=== PATIENT | female | born 1945 | race Caucasian/White ===

== ENCOUNTER 2023-11-10 10:44 | Emergency (ER) | payer OTHER, SELFPAY ==
[2023-11-10 10:52] VITALS: PULSE 145; RESP 9; O2SAT 98
--- NOTE | 2023-11-10 10:57 | EKG_ITS ---
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
--- NOTE | 2023-11-10 10:57 | DI.RAD.S_ITS ---
PROCEDURE: XR CHEST 1V INDICATIONS: chest pain TECHNIQUE: One view of the chest was acquired. COMPARISON: None. FINDINGS: Surgical changes and devices: None. Lungs and pleura: Lungs are clear. No pleural effusions or pneumothorax. Mediastinum: Mediastinal contours appear normal. Heart size is normal. Bones and chest wall: No suspicious bony lesions. Overlying soft tissues appear unremarkable. IMPRESSION: No acute pulmonary process. Dictated by: Genevieve German M.D. on 11/10/2023 at 12:26 Approved by: Genevieve German M.D. on 11/10/2023 at 12:30
[2023-11-10 11:00] VITALS: BP 112/64; BP 148/99; PULSE 143; RESP 16; O2SAT 97
[2023-11-10] MEDS: dilTIAZem 25 MG/5 ML SDV 10 MG IV (11:00)
[2023-11-10 11:03] VITALS: BP 112/64; PULSE 151; RESP 14; TEMP 36.4; O2SAT 98; BMI 31.4
[2023-11-10 11:03] LABS: Add Manual Diff / Slide Review NO; Basophils Absolute Auto 100 /uL (0-100); Basophils Percent Auto 1.1 % (0-2); Eosinophils Absolute Auto 100 /uL (0-450); Eosinophils Percent Auto 1.6 % (2-4); Hematocrit 44.4 % (36-46); Hemoglobin 15.1 g/dL (12.0-16.0); Lymphocytes Absolute Auto 2600 /uL (1100-4500); Lymphocytes Percent Auto 29.5 % (25-40); Mean Corpuscular HGB Conc 33.9 % (30-36); Mean Corpuscular Volume 85.3 fL (80-100); Monocytes Absolute Auto 600 /uL (0-900); Monocytes Percent Auto 7.1 % (3-14); Neutrophils Absolute Auto 5400 /uL (1500-7000); Neutrophils Percent Auto 60.7 % (50-75); Platelet Count 318 X10^3/uL (150-400); Red Cell Distribution Width 15.1 % (11.6-14.8)
--- NOTE | 2023-11-10 11:11 | PC.NURSE ---
Addendum entered by Kallie Wasserman R.N. 11/10/23 11:19: 1119 Pt converted to NSR. HR 74 after 10mg of IV diltiazem. Pt states that she feels better, but still mildly SOB. Original Note: Pt came to ED from [facility] office due to SVT. Pt at routine cardiology appointment and started to feel dizzy and SOB. EKG at [facility] abnormal and Dr Rothman spoke with Dr Palumbo on phone regarding pt. Pt arrived to the dept and stated that she felt very SOB and dizzy. Taken immediately to room, where EKG done, 18G IV placed, placed on bedside conference director and Dr Palumbo called to bedside. Pt HR 151. Vasovagal maneuver performed on pt with DR Palumbo and unsuccessful. Dr Palumbo placed order for 10mg Diltiazem IV. Pt HR 124.
[2023-11-10 11:24] LABS: Alanine Aminotransferase 39 IU/L (<35); Albumin 4.5 g/dL (3.5-5.0); Albumin Globulin Ratio 1.4 (1.0-2.8); Alkaline Phosphatase 167 U/L (38-126); Aspartate Aminotransferase 41 IU/L (14-36); Bilirubin Total 0.6 mg/dL (0.2-1.3); Blood Urea Nitrogen 21 mg/dL (7-17); Calcium 9.5 mg/dL (8.4-10.2); Carbon Dioxide 23 mmol/L (22-32); Chloride 106 mmol/L (98-107); Creatine Kinase 58 U/L (30-135); Estimated Glomerular Filt Rate 57 mL/min (>60); Globulin 3.2 g/dL (1.7-4.1); Glucose 109 mg/dL (80-110); HEMOLYSIS < 15 (0-50); Lipase 161 U/L (23-300); Potassium 4.3 mmol/L (3.4-5.1); Sodium 136 mmol/L (137-145); Total Protein 7.7 g/dL (6.3-8.2)
[2023-11-10 11:30] VITALS: BP 154/72; PULSE 67; RESP 28; O2SAT 96
[2023-11-10 11:36] LABS: Troponin I < 0.012 ng/mL (0.01-0.034)
--- NOTE | 2023-11-10 11:38 | EKG_ITS ---
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
--- NOTE | 2023-11-10 11:40 | ED.ARRPALP ---
HPI - Arrhythmia/Palpitations General Chief Complaint: Arrhythmia/Palpitations Stated Complaint: sent from Dr Willard Time Seen by Provider: 11/10/23 10:54 Source: patient Mode of arrival: Ambulatory History of Present Illness HPI narrative: Patient is a evelia 78-year-old female history of an arrhythmia, fatty liver presenting today from cardiology office in [place]. She reports that she was having some chest palpitations shortness of breath back in June she finally got a cardiology appointment she was in SVT today. She says she was feeling in her normal state of health yesterday however this morning she started feeling a little shortness of breath and some fluttering in her chest. He had a heart rate of [address] Willard called me to let me know he was sending her here. He did try some vasovagal carotid massage in the office which was unsuccessful. Patient has really no other complaints and has been feeling. She also says that she has had some sort of arrhythmia her whole life she is currently on diltiazem Patient History Social History Smoking Status: Former smoker Smoking Status: Former smoker alcohol intake frequency: 0-2 drinks per day Substance Use Type: does not use Exam Initial Vital Signs Initial Vital Signs: Vital Signs Pulse Rate 145 H 11/10/23 10:52 Respiratory Rate 9 L 11/10/23 10:52 Pulse Oximetry 98 11/10/23 10:52 GENERAL: Alert evelia 78-year-old female HEENT: Head atraumatic,EOMI, pupils reactive, face symmetric, moist mucous membranes CARDIOVASCULAR: Tachycardic regular no murmurs RESPIRATORY: Breath sounds equal bilaterally, no wheezes rales or rhonchi. ABDOMEN: Soft, nontender. Normoactive bowel sounds all 4 quadrants. No guarding or rebound. EXTREMITIES: Normal range of motion, no clubbing or edema. Neurovascularly intact NEUROLOGICAL: Alert and oriented x4.Normal gait and speech. Cranial nerves II through XII grossly intact. SKIN: Warm, dry, no laceration, no petechiae, no rashes or lesions. Course Orders Ordered: ED Orders 11/10/23 10:56 Complete Blood Count AUTO DIFF Stat Comprehensive Metabolic Panel Stat Lipase Stat Troponin & CK Cardiac Panel Stat 11/10/23 10:57 XR chest 1V Stat EKG-12 Lead Stat 11/10/23 11:38 EKG-12 Lead Stat Discontinued Medications Adenosine (Adenosine 6 Mg/2 Ml Vial) 6 mg IV NOW ONE Stop: 11/10/23 11:14 Last Admin: 11/10/23 12:27 Dose: Not Given Documented By: AWAIS Diltiazem HCl (Diltiazem 25 Mg/5 Ml Sdv) 10 mg IV NOW ONE Stop: 11/10/23 10:58 Last Admin: 11/10/23 11:00 Dose: 10 mg Documented By: AWAIS Vital Signs Vital signs: Vital Signs - 8 hr 11/10/23 11:30 11/10/23 11:30 11/10/23 11:46 Pulse Rate 67 Respiratory Rate 28 H Blood Pressure 154/72 H 152/72 H Pulse Oximetry 96 11/10/23 11:46 11/10/23 12:00 11/10/23 12:00 Pulse Rate 72 75 Respiratory Rate 17 20 Blood Pressure 169/85 H Pulse Oximetry 98 97 MDM - Arrhythmia/Palpitations Lab Data 11/10/23 10:56 11/10/23 10:56 Labs: Lab Results 11/10/23 Range/Units 10:56 WBC 9.0 (4.5-11.0) X10^3/uL RBC 5.20 (4.0-5.2) X10^6/uL Hgb 15.1 (12.0-16.0) g/dL Hct 44.4 (36-46) % MCV 85.3 (80-100) fL MCH 29.0 (26-34) PG MCHC 33.9 (30-36) % RDW 15.1 H (11.6-14.8) % Plt Count 318 (150-400) X10^3/uL Neut % (Auto) 60.7 (50-75) % Lymph % (Auto) 29.5 (25-40) % [place] % (Auto) 7.1 (3-14) % Eos % (Auto) 1.6 L (2-4) % Baso % (Auto) 1.1 (0-2) % Neut # (Auto) 5400 (2326-9687) /uL Lymph # (Auto) 2600 (9380-0478) /uL [place] # (Auto) 600 (0-900) /uL Eos # (Auto) 100 (0-450) /uL Baso # (Auto) 100 (0-100) /uL Sodium 136 L (137-145) mmol/L Potassium 4.3 (3.4-5.1) mmol/L Chloride 106 (98-107) mmol/L Carbon Dioxide 23 (22-32) mmol/L BUN 21 H (7-17) mg/dL Creatinine 1.00 (0.52-1.04) mg/dL Estimated GFR 57 L (>60) mL/min BUN/Creatinine Ratio 21.0 (6-22) Glucose 109 (80-110) mg/dL Calcium 9.5 (8.4-10.2) mg/dL Total Bilirubin 0.6 (0.2-1.3) mg/dL AST 41 H (14-36) IU/L ALT 39 H (<35) IU/L Alkaline Phosphatase 167 H (38-126) U/L Total Creatine Kinase 58 (30-135) U/L Troponin I < 0.012 (0.01-0.034) ng/mL Total Protein 7.7 (6.3-8.2) g/dL Albumin 4.5 (3.5-5.0) g/dL Globulin 3.2 (1.7-4.1) g/dL Albumin/Globulin Ratio 1.4 (1.0-2.8) Lipase 161 (23-300) U/L ECG Data Attestation: I personally reviewed and interpreted this ECG as follows: Interpretation: SVT rate [address] depression Repeat EKG sinus rhythm rate 66 MN interval 172 QRS 100 QTC 450 Q-waves noted in lead 3 AVF also having some ST depression in lead 2 MDM Narrative Medical decision making narrative: Patient is a 78-year-old female with history of arrhythmia presenting today from cardiology office with SVT. Immediately tried to vasovagal it did slow her down a couple of beats but overall unsuccessful. She is hemodynamically stable and cheerful. She is given 10 mg of diltiazem which did not slow her down and she ultimately converted on her own to a sinus rhythm. Blood work has been reviewed WBC 9.0 hemoglobin 15.1 hematocrit 44.4 platelets 318, sodium 136, potassium 4.3, chloride 106, carbon dioxide 23, BUN 21, creatinine 1.0, glucose 109, bilirubin 0.6, AST 41 ALT 39 alk-phos 167 troponin negative Chest x-ray no acute cardiopulmonary process She overall feels significantly better. Dr. Willard cardiology confirms he can take diltiazem as needed no need to change medication she has already been referred to Dr. Gilmore Discharge Plan Departure Patient Disposition: Home Clinical Impression: Supraventricular tachycardia Instructions: DI for Paroxysmal Supraventricular Tachycardia Activity Restrictions/Additional Instructions: *You have been diagnosed with SVT *What to do: At this time follow up with Dr. Gilmore and Cardiology. *Continue to take medications as directed *Follow up with your primary care provider in 2-3 days or call [phone] *Return to ER if you should have increasing chest pain shortness of breath palpitation or any new, worsening or concerning symptoms Referrals: Alberto Sorensen MD [Primary Care Provider] - Stand Alone Forms: Patient Portal/API
[2023-11-10 11:46] VITALS: BP 152/72; PULSE 72; RESP 17; O2SAT 98
[2023-11-10 12:00] VITALS: BP 169/85; PULSE 75; RESP 20; O2SAT 97
--- NOTE | 2023-11-10 12:07 | PC.NURSE ---
Pt HR 76 and remains NSR.
== END 2023-11-10 12:29 | disposition home or self-care (01) ==
PROVIDERS: Emergency Provider Emergency Medicine; PCP Family Medicine
DX: I47.10 Supraventricular tachycardia, unspecified (principal)
CPT/HCPCS: 36415; 71045; 80053; 82550; 83690; 84484; 85025; 93005; 96374; 99284